=== PATIENT | male | born 1990 | race Caucasian/White ===

== ENCOUNTER → 2017-10-14 | Outpatient (CLI) | payer BC ==
[2017-10-14 12:41] LABS: BASO % 0.4 %; BASO ABS # 0.05 K/uL (0-0.2); EOS % 1.1 %; EOS ABS # 0.12 K/uL (0-0.5); HEMOGLOBIN 17.6 g/dL (14.0-18.0); IG# 0.02 K/uL (0.00-0.02); LYMPH % 14.9 %; LYMPH ABS # 1.66 K/uL (1.2-3.4); MEAN CELL VOLUME 94.1 fL (80-100); MEAN CORPUSCULAR HEMOGLOBIN 32.5 pg (25-34); MEAN CORPUSCULAR HGB CONC 34.5 g/dl (32-36); MEAN PLATELET VOLUME 13.1 fL (7.4-10.4); MONO % 6.2 %; MONO ABS # 0.69 K/uL (0.11-0.59); NEUT % 77.2 %; NEUT ABS # 8.59 K/uL (1.4-6.5); PLATELET COUNT 207 K/uL (130-400); RED CELL DISTRIBUTION WIDTH CV 12.9 % (11.5-14.5); RED CELL DISTRIBUTION WIDTH SD 44.5 fL (36.4-46.3); WHITE BLOOD COUNT 11.13 K/uL (4.8-10.8)
[2017-10-14 12:51] LABS: ALBUMIN 4.6 gm/dl (3.4-5.0); ALT/SGPT 81 U/L (12-78); BLOOD UREA NITROGEN 13 mg/dl (7-18); CALCIUM 9.7 mg/dl (8.5-10.1); CARBON DIOXIDE 26 mmol/L (21-32); CHOLESTEROL 178 mg/dl (0-200); CREATININE 1.42 mg/dl (0.60-1.40); GLUCOSE 143 mg/dl (70-99); POTASSIUM 3.4 mmol/L (3.5-5.1); SODIUM 137 mmol/L (136-145)
[2017-10-14 12:54] LABS: ALKALINE PHOSPHATASE 84 U/L (45-117); AST/SGOT 39 U/L (15-37); LDL CHOLESTEROL CALCULATED 109 mg/dl; TOTAL PROTEIN 8.6 gm/dl (6.4-8.2)
== END | disposition home or self-care (01) ==
LOC: EDBD 07:47 → C.LABBFT 07:47
PROVIDERS: ATTEND Nurse Practitioner
DX: K08.89 Other specified disorders of teeth and supporting structures (principal); Z13.220 Encounter for screening for lipoid disorders

== ENCOUNTER → 2017-10-18 | Outpatient (CLI) | payer BC ==
[2017-10-18 12:42] LABS: ALBUMIN 3.8 gm/dl (3.4-5.0); ALT/SGPT 51 U/L (12-78); AST/SGOT 28 U/L (15-37); BLOOD UREA NITROGEN 12 mg/dl (7-18); CALCIUM 8.8 mg/dl (8.5-10.1); CARBON DIOXIDE 28 mmol/L (21-32); CREATININE 1.04 mg/dl (0.60-1.40); GLUCOSE 88 mg/dl (70-99); POTASSIUM 4.3 mmol/L (3.5-5.1); SODIUM 139 mmol/L (136-145); TOTAL PROTEIN 6.9 gm/dl (6.4-8.2)
[2017-10-18 12:44] LABS: ALKALINE PHOSPHATASE 81 U/L (45-117)
== END | disposition home or self-care (01) ==
LOC: C.LABBFT 07:44
PROVIDERS: ATTEND Nurse Practitioner
DX: E86.0 Dehydration (principal)